=== PATIENT | male | born 1995 | race Caucasian/White ===

== ENCOUNTER 2018-09-02 15:07 | Emergency (ER) | payer SELFPAY ==
[~2018-09-02] VITALS: Ht 180.3 cm; Wt 78.0 kg
--- OUTSIDE RECORDS SUMMARY | 2018-09-02 15:16 | XMS REPORT ---
Author Author NAVDEEP AGUERO Organization [employer] Address Unknown Phone Unavailable Care Team Providers Care Staff Climate Scientist Name Role Phone NAVDEEP AGUERO CP Unavailable Allergies, Adverse Reactions, Alerts Substance Reaction Event Type Penicillin V Potassium unknown Drug Allergy Problems Problem Type Condition Code Onset Dates Condition Status Assessment Other chest pain R07.89 Active Medications No Known Medications Procedures Procedure Coding System Code Date Office Visit, New Pt., Level 2 CPT-4 03720 Apr 07, 2015 Vital Signs Date/Time: Apr 07, 2015 Temperature 97.1 F Weight 143 lbs Height 70 in BMI 20.52 Index Blood Pressure Diastolic 60 mmHg Blood Pressure Systolic 110 mmHg Cardiac Monitoring Heart Rate 68 bpm Results No Known Results Summary Purpose [employer] Submission
--- OUTSIDE RECORDS SUMMARY | 2018-09-02 15:16 | XMS REPORT ---
Author Author NAVDEEP AGUERO Organization [employer] Address Unknown Phone Unavailable Care Team Providers Care Vender Name Role Phone NAVDEEP AGUERO CP Unavailable Allergies No Known Allergies Problems Problem Type Condition Code Onset Dates Condition Status Assessment Encounter for immunization Z23 Active Medications No Known Medications Procedures Procedure Coding System Code Date SINGLE IMMUNIZATION ADMIN CPT-4 53266 Apr 19, 2015 TDAP (BOOSTRIX) CPT-4 43040 Apr 19, 2015 Results No Known Results Immunizations Vaccine Administration Date TDAP (BOOSTRIX) Apr 19, 2015 Summary Purpose [employer] Submission
--- OUTSIDE RECORDS SUMMARY | 2018-09-02 15:16 | XMS REPORT ---
Author Author NAVDEEP AGUERO Organization [employer] Address Unknown Phone Unavailable Care Team Providers Care Lease Picker Name Role Phone NAVDEEP AGUERO CP Unavailable Allergies, Adverse Reactions, Alerts Substance Reaction Event Type Penicillin V Potassium unknown Drug Allergy Problems Problem Type Condition Code Onset Dates Condition Status Assessment Dental abscess K04.7 Active Medications Medication Code System Code Instructions Start Date End Date Status Dosage Hydrocodone-Acetaminophen [facility] [address]-73 5-325 MG Orally 2 times a day 1-2 tablet as needed Clindamycin HCl [facility] [address]-25 300 MG Orally 2 times a day Jul 13, 2015 1 capsule Procedures Procedure Coding System Code Date Office Visit, Est Pt., Level 3 CPT-4 31531 Jun 22, 2015 Vital Signs Date/Time: Jun 22, 2015 Temperature 97.8 F Weight 150.0 lbs Height 70 in BMI 21.52 Index Blood Pressure Diastolic 70 mmHg Blood Pressure Systolic 90 mmHg Cardiac Monitoring Heart Rate 76 bpm Results No Known Results Summary Purpose [employer] Submission
--- NOTE | 2018-09-02 15:35 | ED Cough/URI ---
General Chief Complaint: Cough/Cold/Flu Symptoms Stated Complaint: SORE THROAT, CHEST CONGESTION Source: patient Exam Limitations: no limitations History of Present Illness Date Seen by Provider: Sep 02, 2018 Time Seen by Provider: 15:24 Initial Comments The patient presents to ER by private conveyance with chief complaint of the last few days she's had a cough productive of phlegm, MAXIMUM TEMPERATURE is 99.9 and sore throat, nasal congestion. His roommates of been diagnosed with bronchitis and upper respiratory tract infections. He works in an area with cancer patients and wants to know if he is contagious or not. He does not have a history of COPD but he does have a history of asthma for which she does not take anything. He does not follow with a doctor. He has a history of cerebral palsy. Says her some tightness in his chest when he coughs. Allergies and Home Medications Patient Home Medication List Home Medication List Reviewed: Yes Review of Systems Review of Systems Constitutional: chills, fever, malaise EENTM: hoarseness, nose congestion, throat pain; No ear discharge, No ear pain Respiratory: cough, phlegm; No short of breath Cardiovascular: No chest pain, No edema Gastrointestinal: No abdominal pain, No constipation, No diarrhea, No nausea Genitourinary: No discharge, No dysuria Musculoskeletal: No back pain, No joint pain Skin: No pruritus, No rash Past Knvjtbo-Brcnmc-[place] Hx Patient Social History Alcohol Use: Rarely Uses Recreational Drug Use: No Type Used: Smokeless Tobacco (half can per day) Recent Foreign Travel: No Contact w/Someone Who Travel: No Physical Exam Vital Signs - First Documented 09/02/18 15:21 Temp 98.4 Pulse 78 Resp 20 B/P (MAP) 132/84 (100) Pulse Ox 97 O2 Delivery Room Air Capillary Refill : Height: '" Weight: lbs. oz. kg; BMI Method: General Appearance: no apparent distress, other (disheveled) Eyes: Bilateral Eye Normal Inspection, Bilateral Eye PERRL, Bilateral Eye EOMI HEENT: PERRL/EOMI, normal ENT inspection, TMs normal, pharyngeal erythema; No tonsillar exudate Neck: non-tender, full range of motion, supple, normal inspection Respiratory: no respiratory distress, no accessory muscle use, crackles (faint left upper lobe); No wheezing Cardiovascular: normal peripheral pulses, regular rate, rhythm, no edema Neurologic/Psychiatric: alert, normal mood/affect, oriented x 3 Skin: normal color, warm/dry Progress/Results/Core Measures Suspected Sepsis SIRS Temperature: Pulse: Respiratory Rate: Blood Pressure / Mean: Results/Orders Lab Results Laboratory Tests Test 09/02/18 15:26 Range/Units Group A Streptococcus Screen NEGATIVE NEGATIVE Micro Results Microbiology 09/02/18 Influenza Types A,B Antigen (TROY) - Final, Complete My Orders Orders - SANDER LAGUNA Chest Pa/Lat (2 View) (09/02/18 15:31) Vital Signs/I&O 09/02/18 15:21 Temp 98.4 Pulse 78 Resp 20 B/P (MAP) 132/84 (100) Pulse Ox 97 O2 Delivery Room Air Capillary Refill : Progress Note : Time: 15:34 Progress Note Rapid strep, influenza and chest x-ray. URI versus bronchitis versus pneumonia. Vital signs are aseptic. Diagnostic Imaging Diagonstic Imaging: Xray Plain Films/CT/US/NM/MRI: chest (2v) Comments No acute cardiopulmonary process noted. Reviewed: Reviewed by Me Departure Impression Primary Impression: Bronchitis Disposition: 01 HOME, SELF-CARE Condition: Stable Departure-Patient Inst. Decision time for Depature: 16:26 Patient Instructions: Acute Bronchitis, Adult (DC) Add. Discharge Instructions: Wear a mask when at work. Use hand manager hiv and soap water wash her hands. Use vapor rubs and humidifiers. Uvja-hxl-nukswao cough medicines as necessary. Use the Tessalon Perles 1 capsule every 6 hours as needed for cough. All discharge instructions reviewed with patient and/or family. Voiced understanding. Scripts Benzonatate (Tessalon Perle) 100 Mg Capsule 100 MG PO Q6H PRN for COUGH, #20 CAP 0 Refills Prov: SANDER LAGUNA 09/02/18 Work/School Note: Work Release Form Date Seen in the Emergency Department: Sep 02, 2018 Return to Work: Sep 04, 2018 Restrictions: No Restrictions SANDER LAGUNA Sep 02, 2018 15:35
[2018-09-02] MEDS ORDERED: BENZ-13 PO (16:28)
[2018-09-02 16:32] VITALS: BP 132/84
--- NOTE | 2018-09-02 19:04 | Diagnostic Imaging Report ---
INDICATION: Cough and congestion. TIME OF EXAM: 03:47 p.m. COMPARISON: No prior studies are available for comparison. FINDINGS: The heart size is normal. The pulmonary vascularity is unremarkable. The lungs are clear. No infiltrate, effusion or pneumothorax is detected. IMPRESSION: No acute cardiopulmonary process is detected. Dictated by: Dictated on workstation # [id number]
== END 2018-09-02 16:32 | disposition home or self-care (01) ==
LOC: ER 15:12
DX: J45.909 Unspecified asthma, uncomplicated (principal); G80.9 Cerebral palsy, unspecified; F17.210 Nicotine dependence, cigarettes, uncomplicated
CPT/HCPCS: 71046; 87430; 87804

== ENCOUNTER 2022-05-21 19:35 | Emergency (ER) | payer SELFPAY ==
[~2022-05-21 19:35] MED LIST: BENZ-13 PO
--- NOTE | 2022-05-21 20:49 | ED General ---
General Chief Complaint: COVID19 Suspect/Confirmed Stated Complaint: COUGH/HEADACHE/BODYACHES/FATIGUE/FEVER/DIARRHEA Nursing Triage Note: PT ARRIVAL TO ER VIA PRIVATE VEHICLE FROM HOME WITH REQUEST OF WANTING TO BE FLU/COVID SWABBED. PATIENT COMPLAINS OF COUGH, CONGESTION, FEVER, COVID EXPOSURE. PT WORKS AT [employer] AND HAS 7 COVID POSITIVE PATIENTS. STATES THAT HE HAD MULTIPLE POSITIVES COUGH ON HIM IN THE LAST WEEK. SYMPTOMS STARTED 2 DAYS AGO. 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 Patient wants a COVID test. Denies shortness of breath, chest pain, palpitations, diarrhea, abdominal pain. Allergies and Home Medications Patient Home Medication List Home Medication List Reviewed: Yes Benzonatate (Tessalon Perle) 100 Mg Capsule, 100 MG PO Q6H PRN for COUGH Prescribed by: SANDER LAGUNA on 09/02/18 1628 Review of Systems Review of Systems Constitutional: chills, fever, malaise EENTM: see HPI Respiratory: cough Cardiovascular: no symptoms reported Gastrointestinal: no symptoms reported Genitourinary: no symptoms reported Musculoskeletal: no symptoms reported Skin: no symptoms reported Psychiatric/Neurological: No Symptoms Reported Hematologic/Lymphatic: No Symptoms Reported Immunological/Allergic: no symptoms reported Past Hjoixhb-Xqtyyc-Tntojf Hx Patient Social History Tobacco Use?: No Smokeless Tobacco Frequency: Current Everyday User Use of E-Cig and/or Vaping dev: No Substance use?: No Alcohol Use?: Yes Alcohol type: Beer, Hard Liquor Alcohol Frequency: Several times a month Pt feels they are or have been: No Immunizations Up To Date Tetanus Booster (TDap): Unknown PED Vaccines UTD: Yes Influenza Vaccine Up-to-Date: Yes; Up-to-Date Second COVID19 Vaccination Cole: 01/12 COVID19 Vaccine Director Industrial Nursing: [place] Seasonal Allergies Seasonal Allergies: No Past Medical History Surgeries: Yes (SPINAL, ORTHOPEDIC) Respiratory: No Cardiac: No Neurological: Yes Cerebral Palsy Genitourinary: No Gastrointestinal: No Musculoskeletal: No Endocrine: No HEENT: No Cancer: No Psychosocial: No Physical Exam Vital Signs Vital Signs - First Documented 05/21/22 20:37 Temp 36.3 Pulse 81 Resp 16 B/P (MAP) 123/82 (96) Pulse Ox 97 O2 Delivery Room Air Capillary Refill : Less Than 3 Seconds Height, Weight, BMI Height: 5'11.00" Weight: 172lbs. oz. 78.421274wg; BMI Method:Stated General Appearance: No Apparent Distress, WD/WN HEENT: PERRL/EOMI, TMs Normal, Normal ENT Inspection, Pharynx Normal, Other (Nasal congestion and sinus tenderness in the frontal and maxillary area, which is mild) Neck: Full Range of Motion, Normal Inspection Respiratory: Chest Non Tender, Lungs Clear, Normal Breath Sounds, No Accessory Muscle Use, No Respiratory Distress Cardiovascular: Regular Rate, Rhythm, No Edema Gastrointestinal: Normal Bowel Sounds, Non Tender, Soft Extremity: Normal Range of Motion Neurologic/Psychiatric: Alert, Oriented x3, Normal Mood/Affect Skin: Normal Color Progress/Results/Core Measures Suspected Sepsis SIRS Temperature: Pulse: 81 Respiratory Rate: 16 Blood Pressure 123 /82 Mean: 96 Results/Orders Lab Results Laboratory Tests Test 05/21/22 20:50 05/21/22 20:55 Range/Units Influenza Type A (RT-PCR) Not Detected Not Detecte Influenza Type B (RT-PCR) Not Detected Not Detecte SARS-CoV-2 RNA (RT-PCR) Detected H Not Detecte Group A Streptococcus Screen NEGATIVE NEGATIVE My Orders Orders - HAMILTON NI MD Covid 19 Inhouse Test (05/21/22 20:45) Influenza A And B By Pcr (05/21/22 20:45) Isolation Central Supply Req (05/21/22 20:45) Rapid Strep A Screen (05/21/22 20:50) Vital Signs/I&O 05/21/22 05/21/22 20:37 20:37 Temp 36.3 Pulse 81 Resp 16 B/P (MAP) 123/82 (96) Pulse Ox 97 O2 Delivery Room Air Room Air Capillary Refill : Less Than 3 Seconds Blood Pressure Mean: 96 Progress Note : Progress Note 1. COVID POSITIVE - COVID positive test - Tylenol / Ibuprofen as needed for fever and body aches -Follow-up with PCP within the next 3 to 7 days -Quarantine measures advised -The patient was seen in the ED, and treated appropriately to presentation at a specific point in time. Patient is informed that there is a possibility that disease and illness can evolve and change in acuity rapidly or slowly after patient is discharged from the ER. Precautionary advice given to the patient for immediate return to ER if symptoms worsen or do not resolve, and to seek emergency care sooner rather than later. Pt also advised on the importance of PCP follow up and compliance with management and follow up plan with PCP and/or specialist, as this is part of the management plan. Pt verbally expressed understanding. Departure Impression Primary Impression: SARS-CoV-2 positive Disposition: HOME, SELF-CARE Condition: Stable Departure-Patient Inst. Referrals: NO,LOCAL PHYSICIAN (PCP/Family) Primary Care Physician Patient Instructions: COVID-19 Home Care/Discharge, COVID-19 (DC) Add. Discharge Instructions: - Tylenol / Ibuprofen as needed for fever and body aches -Follow-up with PCP within the next 3 to 7 days -Quarantine measures advised All discharge instructions reviewed with patient and/or family. Voiced understanding. Work/School Note: Work Release Form Date Seen in the Emergency Department: May 21, 2022 Return to Work: May 29, 2022 Restrictions: Return-No Fever (24hrs) Other Restrictions Listed Below: quarantine for 5 days, RTW no fever for 24hrs HAMILTON NI MD May 21, 2022 20:49
[2022-05-21 22:25] VITALS: BP 118/79
== END 2022-05-21 22:28 | disposition home or self-care (01) ==
LOC: EDUNIT# 19:35 → ER 19:39
DX: U07.1 COVID-19 (principal); F17.200 Nicotine dependence, unspecified, uncomplicated
CPT/HCPCS: 87430; 87636; 99283